=== PATIENT | male | born 1985 | race Caucasian/White ===

== ENCOUNTER → 2023-12-15 06:59 | Outpatient (CLI) | payer OTHER, SELFPAY ==
--- NOTE | 2023-12-15 07:02 | DI.US.S_ITS ---
PROCEDURE: US RENAL COMPLETE INDICATIONS: Urgency of urination TECHNIQUE: Real-time scanning was performed of the kidneys and bladder, with image documentation. COMPARISON: None. FINDINGS: Kidneys: Kidneys are normal in size. Right kidney measures 10.5 cm long; left kidney measures 9.9 cm long. Right renal cortical thickness is 2 cm; left renal cortical thickness is 2.1 cm. Renal cortical echotexture is normal. No hydronephrosis or nephrolithiasis. No suspicious solid mass lesions. Simple right ovarian cyst measuring 2.2 cm. Simple right ovarian cyst measuring 2 cm. Bladder: Pre-void bladder volume is 103 mL. Post-void residual is 0 mL. Pre-void images demonstrate no intraluminal masses or stones. On pre-void images, both ureteral jets are noted with color Doppler interrogation. (Of note, ureteral jets may not be detectable in up to 25% of cases due to insufficient differences in specific gravity between ureteral and bladder urine). Miscellaneous: No free pelvic fluid. Prostate measures 1.1 cm. Prostate calcifications noted. IMPRESSION: 1. No hydronephrosis. 2. Small simple right ovarian cyst. 3. No postvoid residual. Dictated by: Mik Rothman M.D. on 12/15/2023 at 12:22 Approved by: Mik Rothman M.D. on 12/15/2023 at 12:24
== END ==
LOC: US 07:01
PROVIDERS: Referring Provider Physician Assistant Medical; Visit Provider Physician Assistant Medical
DX: N28.1 Cyst of kidney, acquired (principal); R39.15 Urgency of urination; R35.0 Frequency of micturition; R35.1 Nocturia
CPT/HCPCS: 76770

== ENCOUNTER 2025-06-07 12:42 | Day surgery (SDC) | payer OTHER, SELFPAY ==
--- NOTE | 2025-06-07 | PATH_ITS ---
[facility] Accession Number: [id number] No. of containers..05 Tissue . 01 Material submitted: . PART A: duodenum - DUODENUM PART B: gastrointestinal site - ANTRUM PART C: small bowel - ILEUM, TERMINAL PART D: colon - COLON, RIGHT PART E: colon - COLON, LEFT . 01 Diagnosis: A. DUODENUM, BIOPSY: Duodenal mucosa with no diagnostic abnormality. Negative for active inflammation, features of sprue, dysplasia, or malignancy. . B. GASTRIC ANTRUM, BIOPSY: Gastric antral mucosa with mild chronic inflammation. Negative for Helicobacter organisms by immunohistochemistry. Negative for intestinal metaplasia. Negative for dysplasia or malignancy. . C. TERMINAL ILEUM, BIOPSY: Ileal mucosa with no diagnostic abnormality. Negative for active inflammation, granulomas, dysplasia, or malignancy. . D. RIGHT COLON, BIOPSY: Colonic mucosa with no diagnostic abnormality. Negative for active, chronic, and microscopic colitis. Negative for dysplasia and malignancy. . E. LEFT COLON, BIOPSY: Colonic mucosa with no diagnostic abnormality. Negative for active, chronic, and microscopic colitis. Negative for dysplasia and malignancy. . [facility] 06/15/2025 1331 Local . 01 Electronically signed: . Miko Franco MD, PhD, Pathologist NPI- [id number] . 01 Gross description: . Received are five formalin-filled containers each labeled with the patient's name. . A. In a container labeled duodenum, is one fragment of keenan, soft tissue which measures 0.3 x 0.3 x 0.3 cm. The specimen is totally submitted in cassette A1. B. In a container labeled antrum, are four fragments of keenan, soft tissue which range in size from 0.2 x 0.2 x 0.2 cm to 0.4 x 0.3 x 0.2 cm. All fragments are totally submitted in cassette B1. C. In a container labeled terminal ileum, are two fragments of keenan, soft tissue which range in size from 0.2 x 0.2 x 0.2 cm to 0.4 x 0.2 x 0.2 cm. All fragments are totally submitted in cassette C1. D. In a container labeled right colon, are two fragments of keenan, soft tissue which range in size from 0.2 x 0.2 x 0.2 cm to 0.3 x 0.3 x 0.2 cm. All fragments are totally submitted in cassette D1. E. In a container labeled left colon, are three fragments of keenan, soft tissue which range in size from less than 0.1 cm to 0.2 x 0.2 x 0.2 cm. All fragments are totally submitted in cassette E1. ([id number]) /ALAN 06/12/20258 Local . 01 Microscopic: . B. An immunohistochemical stain was performed to evaluate for Helicobacter organisms and is negative. The control stain showed appropriate reactivity. . * This test was developed and the performance characteristics were validated by [facility]. It has not been cleared or approved by the [place]. Food and Drug Administration. . 01 Pathologist provided ICD-10: K29.70, Z12.11, R19.4 . 01 CPT . 240448, 995907, 072194, 330174, 837728, [id number] Specimen Comment: A courtesy copy of this report has been sent to [phone] Performed at: [address] [address], [place], [place] [id number] MD Lee Mathias MD Phone: [phone]
[2025-06-07 13:04] VITALS: BP 126/85; PULSE 64; RESP 16; TEMP 36.4; O2SAT 100
[2025-06-07] MEDS: LACTATED RINGERS 1,000 ML 84 ML IV (13:29)
--- NOTE | 2025-06-07 13:43 | PM.HP.IH.1 ---
History of Present Illness History of Present Illness Date Patient Seen: 06/07/25 Time Patient Seen: 13:43 Chief complaint: SDC Narrative: Abdirizak is a 39-year-old man with dyspepsia and a change in bowel habits. See the office note for details. PFSH Social History Smoking Status: Never smoker Meds Home Medications and Allergies Allergies Allergy/AdvReac Type Severity Reaction Status Date / Time No Known Drug Allergies Allergy Verified 06/07/25 13:01 Exam Vital Signs (past 8 hours): - 06/07/25 13:04 Temperature 97.6 F Pulse Rate 64 Respiratory Rate 16 Blood Pressure 126/85 Pulse Oximetry 100 Oxygen Delivery Method Room Air Oxygen Delivery Method Room Air Const General: healthy appearing Assessment & Plan Assessment and plan (1) Abdominal pain: Qualifiers: Abdominal location: generalized Qualified Code(s): R10.84 - Generalized abdominal pain Status: Acute Plan EGD and colonoscopy Time-Based Coding :: [TOTAL MINUTES] spent with patient and on the chart (including review of chart, obtaining history, exam, reviewing outside data, placing orders, documenting exam and treatment plan, and counseling patient) on [DATE]. [employer] Document charge(s): No
--- NOTE | 2025-06-07 14:34 | PM.OP.EC ---
Operative Date/Time/Diagnoses Date of procedure: 06/07/25 Time of procedure: 14:34 Pre-op diagnosis: Dyspepsia and change in bowel habits Post-op diagnosis: same Procedure & Clinicians Study performed: EGD and colonoscopy Same procedure(s) as scheduled: Yes Surgeon: Frnady Wolf Anesthesia Type: MAC +/- Procedure Notes Procedure in detail: Surgeon: Frandy Wolf MD Anesthesia: Shashank Roger MD Procedure in detail: A timeout was performed. A bite blocked was placed and monitors were attached to the patient. The patient was positioned in the left lateral decubitus position. Sedation was administered. Once the patient was sedated the endoscope was inserted through the bite block and passed through the esophagus and stomach and into the duodenum. No gross abnormalities were seen. Random biopsies were taken from the duodenal mucosa with cold forceps. We then withdrew the scope into the stomach. No obvious abnormalities were seen. Random biopsies were taken from the antrum with cold forceps. The endoscope was retroflexed and no hiatal hernia was seen. The endoscope was straightned and withdrawn into the esophagus. No abnormalities were noted in the esophagus. EGD findings: Grossly normal EGD Next we repositioned the patient for a colonoscopy. A digital rectal exam was performed and was normal. The colonoscope was inserted and advanced to the cecum. The appendiceal orifice was identified and photographed. The scope was slowly withdrawn over greater than 6 minutes. The terminal ileum was intubated and no abnormalities were seen. Random biopsies were taken from the ileal mucosa with cold forceps. No abnormalities were found within the colon. Random biopsies were taken from the right colon and left colon with cold forceps. The scope was retroflexed in the rectum and no abnormalities were found. Colonoscopy findings: Grossly normal colon and terminal ileum Total procedural EBL: 5 mL Scope withdrawal time: 13 minutes Sedation minutes: 30 minutes Post-procedure Disposition: PACU
[2025-06-07 14:38] VITALS: BP 115/63; PULSE 67; RESP 15; TEMP 36.6; O2SAT 99
[2025-06-07 14:52] VITALS: BP 115/70; PULSE 62; RESP 18; TEMP 36.6; O2SAT 99
== END 2025-06-07 15:00 | disposition home or self-care (01) ==
PROVIDERS: Visit Provider Surgery
PROC: 0DJ08ZZ Inspection of Upper Intestinal Tract, Via Natural or Artificial Opening Endoscopic (ICD-10-PCS; CPT 45380; principal; 2025-06-07 14:15)
PROC: 0DJD8ZZ Inspection of Lower Intestinal Tract, Via Natural or Artificial Opening Endoscopic (ICD-10-PCS; CPT 45378; 2025-06-07 14:15)
DX: R19.4 Change in bowel habit (principal); R10.13 Epigastric pain; K29.50 Unspecified chronic gastritis without bleeding
CPT/HCPCS: 45380; 43239; J2250; J2704